=== PATIENT | female | born 1955 | race Caucasian/White ===

== ENCOUNTER 2021-03-08 11:17 | Emergency (ER) | payer MEDICARE ==
[~2021-03-08] VITALS: Ht 157.5 cm; Wt 68.0 kg
--- NOTE | 2021-03-08 11:58 | PHYS DOC ---
Past Medical History Past Medical History: Diverticulitis, Hypertension (ADAM MIN APRN) General Adult HPI: HPI: Patient is a 65 year old female with history of hypertension, diverticulitis, who presents to the ED today complaining of moderate pain to the left flank region radiating to the left upper abdomen into the left lower quadrant, symptoms began yesterday. Patient also complaining of nausea with no vomiting. Denies any fever. States the pain is similar to the last time she had diverticulitis. Denies anything specifically exacerbating or relieving the pain. (ADAM MIN APRN) Review of Systems: Review of Systems: Constitutional: Denies fever or chills. [] Eyes: Denies change in visual acuity. [] HENT: Denies nasal congestion or sore throat. [] Respiratory: Denies cough or shortness of breath. [] Cardiovascular: Denies chest pain or edema. [] GI: Reports left-sided abdominal pain with nausea, denies vomiting, bloody stools or diarrhea. [] : Reports left flank pain. Denies dysuria. [] Musculoskeletal: Denies back pain or joint pain. [] Integument: Denies rash. [] Neurologic: Denies headache, focal weakness or sensory changes. [] Psychiatric: Denies depression or anxiety. [] (ADAM MIN APRN) Heart Score: C/O Chest Pain: N/A Risk Factors: Risk Factors: DM, Current or recent (<one month) smoker, HTN, HLP, family history of CAD, obesity. Risk Scores: Score 0 - 3: 2.5% MACE over next 6 weeks - Discharge Home Score 4 - 6: 20.3% MACE over next 6 weeks - Admit for Clinical Observation Score 7 - 10: 72.7% MACE over next 6 weeks - Early Invasive Strategies (ADAM MIN APRN) Current Medications: Current Medications Medications (Trade) Dose Ordered Sig/Henri Start Time Stop Time Status Last Admin Dose Admin Hydralazine HCl (Apresoline Inj) 10 mg 1X ONCE 03/08/21 12:00 03/08/21 12:01 UNV Morphine Sulfate (Morphine Sulfate) 4 mg 1X ONCE 03/08/21 12:00 03/08/21 12:01 UNV Ondansetron HCl (Zofran) 4 mg 1X ONCE 03/08/21 12:00 03/08/21 12:01 UNV Sodium Chloride 1,000 ml @ 1,000 mls/hr 1X ONCE 03/08/21 12:00 03/08/21 12:59 UNV (ADAM MIN José Manuel [employer]) Allergies: Allergies: Allergies Coded Allergies Type Severity Reaction Last Updated Verified Tetanus Vaccines and Toxoid Allergy Mild 03/08/21 Yes (ADAM MIN José Manuel [employer]) Physical Exam: PE: Constitutional: Well developed, well nourished, no acute distress, non-toxic appearance. [] HENT: Normocephalic, atraumatic, bilateral external ears normal, oropharynx mois t, no oral exudates, nose normal. [] Eyes: PERRLA, EOMI, conjunctiva normal, no discharge. [] Neck: Normal range of motion, no tenderness, supple, no stridor. [] Cardiovascular:Heart rate regular rhythm, no murmur [] Lungs & Thorax: Bilateral breath sounds clear to auscultation [] Abdomen: Bruising noted on the left side of the abdomen, patient states this is from hitting her abdomen on a countertop acouple days ago. Rounded abdomen. Bowel sounds normal, soft, diffuse tenderness to the left side of the abdomen, no right upper quadrant or right lower quadrant tenderness, no masses, no pulsatile masses. [] Skin: Warm, dry, no erythema, no rash. [] Back: No tenderness, mild left CVA tenderness. [] Extremities: No tenderness, no cyanosis, no clubbing, ROM intact, no edema. [] Neurologic: Alert and oriented X 3, normal motor function, normal sensory function, no focal deficits noted. [] Psychologic: Affect normal, judgement normal, mood normal. [] (ADAM MIN [employer]) EKG: EKG: [] (ADAM MIN [employer]) Radiology/Procedures: Radiology/Procedures: []PROCEDURE: CT ABDOMEN PELVIS WO CONTRAST EXAM: CT Abdomen and Pelvis without IV contrast CLINICAL HISTORY: Reason: left flank/abd pain COMPARISON: none TECHNIQUE: Helical CT of the abdomen and pelvis without intravenous contrast. Axial, coronal and sagittal reformatted images were generated. PQRS compliance statement - One or more of the following individualized dose reduction techniques were utilized for this study: 1. Automated exposure control 2. Adjustment of the mA and/or kV according to patient size 3. Use of iterative reconstruction technique FINDINGS: Lack of intravenous contrast limits evaluation of solid organs, vasculature, and lymph nodes. Lower chest: Calcified granuloma left lower lobe. Abdomen and Pelvis: A 3 mm calculus is seen within the proximal left ureter resulting in moderate left hydronephrosis and proximal left hydroureter. Punctate nonobstructing left interpolar renal calculus. Extensive infiltration is seen about the left kidney and proximal left ureter. No bladder or right renal tract calculus is seen. No focal renal lesion. Spleen, adrenal glands, pancreas and liver are unremarkable. Gallbladder is normal. No biliary dilatation. Prominent right upper quadrant collaterals are seen. Trace fat-containing periumbilical hernia. Moderate colonic stool content is seen. No small or large bowel dilatation. Colonic diverticulosis without CT evidence for acute diverticulitis. Uterus and adnexa are unremarkable. There is normal in caliber. Atherosclerotic calcifications are seen. No abdominal or pelvic ascites or lymphadenopathy. However prominent lymph nodes are seen at about the central mesentery with mild infiltration. Bones: Multilevel degenerative changes. No aggressive osseous lesion. IMPRESSION: 1. 3 mm calculus within the proximal left ureter results in moderate left hydronephrosis and proximal left hydroureter. Associated left perinephric and periureteral infiltration possibly reactive although superimposed infectious process is also a consideration can be correlated with urinalysis. 2. Prominent right upper quadrant collaterals of uncertain clinical significance. 3. 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 This can be correlated with prior imaging if available to assess for stability, otherwise consider interval follow-up to exclude underlying mass/metastatic disease. Electronically signed by: Joey Long MD (03/08/2021 3:59 PM) [facility] DICTATED and SIGNED BY: JOEY LONG MD DATE: 03/08/21 [id number] (ADAM MIN APRN) Course & Med Decision Making: Course & Med Decision Making Pertinent Labs and Imaging studies reviewed. (See chart for details) This is a 65-year-old female patient presenting to the ED today with left flank pain radiating to the left upper abdomen to the left lower quadrant, symptoms began yesterday. Also complaining of nausea. UA noted for trace amount of leukocytes, moderate blood. CBC with no acute findings, CMP with no acute findings. CT of the abdomen and pelvic noted for 3 mm left proximal ureteral stone with mo derate left hydronephrosis and proximal left hydroureter with associated perinephric/periureteral infiltration possibly reactive although superimposed infectious process is also a consideration can be correlated with urinalysis. Her urine does not have significant infection this. Patient received IV fluids in the ED, she was also given Rocephin. She was discharged with Cipro, Flomax, hydrocodone and Zofran. She is provided return precautions. Follow-up with the urologist in the course of this week (ADAM IMN APRN) Dragon Disclaimer: Dragon Disclaimer: This electronic medical record was generated, in whole or in part, using a voice recognition dictation system. (ADAM MIN APRN) Departure Departure Impression: Primary Impression: Kidney stone on left side Additional Impressions: Hydronephrosis, left Pyelonephritis Disposition: HOME / SELF CARE / HOMELESS Condition: STABLE Referrals: ANTONIA NASH MD (PCP) Please follow-up with your primary care doctor and urologist of your choice Patient Instructions: Kidney Stones, [id number] Additional Instructions: You were seen in the emergency room for kidney stones and you also have a slight possible infection in your kidneys. We put you on antibiotics. Take them as prescribed until completed. Follow-up with your primary care doctor in the course of this week or next week, follow-up with a urologist of your chest as soon as possible Scripts Hydrocodone Bit/Acetaminophen (HYDROCODONE-APAP 5-325 ) 1 Tab Tablet 1 TAB PO PRN Q6HRS PRN for PAIN, #14 TAB 0 Refills Sorry Electronic Submission is not working. Prov: ADAM MIN APRN 03/08/21 Tamsulosin Hcl (FLOMAX) 0.4 Mg Cap.er.24h 1 CAP PO DAILY, #7 CAP Prov: ADAM MIN APRN 03/08/21 Ondansetron (ONDANSETRON ODT) 4 Mg Tab.rapdis 1 TAB PO PRN Q6-8HRS, #16 TAB Prov: ADAM MIN APRN 03/08/21 Ciprofloxacin Hcl (CIPRO) 500 Mg Tablet 1 TAB PO BID for 7 Days, #14 TAB 0 Refills Prov: ADAM MIN APRN 03/08/21 Attending Signature I have participated in the care of this patient and I have reviewed and agree with all pertinent clinical information above including history, exam, and recommendations. (MARIA LUISA PALMA DO) ADAM MIN APRN Mar 08, 2021 11:58 MARIA LUISA PALMA DO Mar 08, 2021 17:51
[2021-03-08] MEDS ORDERED: ONDANSETRON PF 4 MG/2 ML VIAL. IVP ONE (12:00)
[2021-03-08] MEDS ORDERED: hydrALAZINE 20 MG/ML VIAL. IVP ONE (12:00)
[2021-03-08] MEDS ORDERED: IV NORMAL SALINE 1000ML BAG 1,000 ML IV ONE (12:00)
[2021-03-08] MEDS ORDERED: MORPHINE SULFATE 4 MG/ML INJ. IV ONE (12:00)
[2021-03-08 12:21] LABS: BILIRUBIN,URINE NEGATIVE (NEG); CLARITY,URINE CLEAR; COLOR,URINE YELLOW; NITRITE,URINE NEGATIVE (NEG); PH,URINE 7.5 (<5.0-8.0); PROTEIN,URINE NEGATIVE (NEG-TRACE); UROBILINOGEN,URINE 0.2 mg/dL (0.2 mg/dL)
[2021-03-08 12:40] LABS: BACTERIA,URINE FEW /HPF (0-FEW)
[2021-03-08 12:59] LABS: BASO % 0 % (0-3); EOS # 0.1 x10^3/uL (0.0-0.7); EOS % 1 % (0-3); HEMATOCRIT 37.6 % (36.0-47.0); HEMOGLOBIN 12.6 g/dL (12.0-15.5); LYMPH # 1.5 x10^3/uL (1.0-4.8); LYMPH % 21 % (24-48); MEAN CORPUSCULAR HEMOGLOBIN 30 pg (25-35); MEAN CORPUSCULAR HGB CONC 34 g/dL (31-37); MEAN CORPUSCULAR VOLUME 89 fL (79-100); MONO # 0.6 x10^3/uL (0.0-1.1); MONO % 8 % (0-9); NEUT % 70 % (31-73); PLATELET COUNT 217 x10^3/uL (140-400); RED BLOOD COUNT 4.21 x10^6/uL (3.50-5.40); RED CELL DISTRIBUTION WIDTH 12.8 % (11.5-14.5); WHITE BLOOD COUNT 7.1 x10^3/uL (4.0-11.0)
--- NOTE | 2021-03-08 16:02 | RAD ---
EXAM: CT Abdomen and Pelvis without IV contrast CLINICAL HISTORY: Reason: left flank/abd pain COMPARISON: none TECHNIQUE: Helical CT of the abdomen and pelvis without intravenous contrast. Axial, coronal and sagi ttal reformatted images were generated. PQRS compliance statement - One or more of the following individualized dose reduction techniques wer e utilized for this study: 1. Automated exposure control 2. Adjustment of the mA and/or kV according to patient size 3. Use of iterative reconstruction technique FINDINGS: Lack of intravenous contrast limits evaluation of solid organs, vasculature, and lymph nodes. Lower chest: Calcified granuloma left lower lobe. Abdomen and Pelvis: A 3 mm calculus is seen within the proximal left ureter resulting in moderate left hydronephrosis and proximal left hydroureter. Punctate nonobstructing left interpolar renal calculus. Extensive infiltr ation is seen about the left kidney and proximal left ureter. No bladder or right renal tract calculu s is seen. No focal renal lesion. Spleen, adrenal glands, pancreas and liver are unremarkable. Gallbladder is normal. No biliary dilata tion. Prominent right upper quadrant collaterals are seen. Trace fat-containing periumbilical hernia. Moderate colonic stool content is seen. No small or large bowel dilatation. Colonic diverticulosis wi thout CT evidence for acute diverticulitis. Uterus and adnexa are unremarkable. There is normal in ca liber. Atherosclerotic calcifications are seen. No abdominal or pelvic ascites or lymphadenopathy. Ho wever prominent lymph nodes are seen at about the central mesentery with mild infiltration. Bones: Multilevel degenerative changes. No aggressive osseous lesion. IMPRESSION: 1. 3 mm calculus within the proximal left ureter results in moderate left hydronephrosis and proxima l left hydroureter. Associated left perinephric and periureteral infiltration possibly reactive altho ugh superimposed infectious process is also a consideration can be correlated with urinalysis. 2. Prominent right upper quadrant collaterals of uncertain clinical significance. 3. Mild infiltration of the central mesentery with small lymph nodes, possibly reactive or related t o mesenteric panniculitis. This can be correlated with prior imaging if available to assess for stabi lity, otherwise consider interval follow-up to exclude underlying mass/metastatic disease. Electronically signed by: Joey Lombardi MD (03/08/2021 3:59 PM) [facility]
[2021-03-08] MEDS ORDERED: TAMSULOSIN 0.4 MG CAP.ER.24H. PO ONE (16:30)
[2021-03-08] MEDS ORDERED: MORPHINE SULFATE 10 MG/ML VIAL. IV ONE (16:30)
[2021-03-08] MEDS ORDERED: cefTRIAXone IV Push 1 GM VIAL. IVP ONE (17:00)
[2021-03-08 17:14] LABS: CALCIUM 8.9 mg/dL (8.5-10.1); CREATININE 0.5 mg/dL (0.6-1.0); GFR 123.1; POTASSIUM 3.6 mmol/L (3.5-5.1)
[2021-03-08 17:20] LABS: ALBUMIN 3.9 g/dL (3.4-5.0); ALBUMIN/GLOBULIN RATIO 1.2 (1.0-1.7); TOTAL BILIRUBIN 0.5 mg/dL (0.2-1.0); TOTAL PROTEIN 7.2 g/dL (6.4-8.2)
[2021-03-08] MEDS ORDERED: ONDA4TAB12 PO (17:47)
[2021-03-08] MEDS ORDERED: TAMS0.4C97 PO (17:47)
[2021-03-08] MEDS ORDERED: HYDR-2761 PO (17:47)
[2021-03-08] MEDS ORDERED: CIPR500T94 PO (17:47)
[2021-03-08] MEDS ORDERED: cloNIDine HCL 0.1 MG TABLET PO ONE (19:00)
[2021-03-08 19:15] VITALS: BP 169/69
== END 2021-03-08 19:15 | disposition home or self-care (01) ==
LOC: ER 11:17
DX: N13.2 Hydronephrosis with renal and ureteral calculous obstruction (principal); N12 Tubulo-interstitial nephritis, not specified as acute or chronic; I10 Essential (primary) hypertension; Z88.7 Allergy status to serum and vaccine
CPT/HCPCS: 36415; 74176; 80053; 81001; 82962; 83690; 85025; 87086; 96361; 96374; 96375; 99285; J0360; J0696; J7030